=== PATIENT | male | born 1995 | race African-American/Black ===

== ENCOUNTER 2018-11-06 02:01 | Emergency (ER) | payer OTHER ==
[~2018-11-06] VITALS: Ht 172.7 cm; Wt 72.6 kg
[2018-11-06] MEDS ORDERED: KETO10TA2 PO (05:49)
[2018-11-06] MEDS ORDERED: ULTRACET PO (05:49)
== END 2018-11-06 12:29 | disposition home or self-care (01) ==
LOC: ER 02:01
DX: S42.032A Displaced fracture of lateral end of left clavicle, initial encounter for closed fracture (principal); S00.83XA Contusion of other part of head, initial encounter; V29.9XXA Motorcycle rider (driver) (passenger) injured in unspecified traffic accident, initial encounter; Y93.89 Activity, other specified; Y92.488 Other paved roadways as the place of occurrence of the external cause; Y99.8 Other external cause status